=== PATIENT | male | born 1935 | race Caucasian/White ===

== ENCOUNTER 2016-10-11 06:52 | Inpatient (IN) | payer MEDICARE, OTHER ==
--- NOTE | ~2016-10-11 | DS ---
Discharge Summary [address] [address] NAME: LAURA DAY JR : 39 STATUS : DIS IN PAT#: [id number] AGE: 81 ADM/REG DATE : 10/11/16 MR#: [id number] REPORT SERV DATE: 10/16/16 DICTATED BY: TIKA VO DATE: 10/12/16 REPORT STATUS : Draft TRANSCRIBED BY: MODL DATE: 10/12/16 ADMISSION DATE: 10/10/2016 DISCHARGE DATE: 10/12/2016 DISCHARGE DIAGNOSES: 1. Qna-JX-keripibay myocardial infarction. 2. Hyperlipidemia. PROCEDURE: Cardiac catheterization. CONSULTANTS: Dr. Bean. HISTORY OF PRESENT ILLNESS: This is a 81-year-old male patient, who came to the hospital at the [facility] Emergency Room with the complaint of chest pain. Please see the dictated H and P. The patient was admitted to hospital with chest pain, was found to have [id number] NH with troponin elevation. He was seen by Dr. Shine over there, decided to get the cardiac catheterization and transfer to the [facility]. 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 The patient has decided to be medically managed. Did not have any intervention. His troponin is trending down and symptoms have been free since he came to the hospital. His medications have been adjusted with the Plavix, Coreg, and Lipitor, and explained to the patient about the change of medication and followup plan. He voiced understanding. DISPOSITION: The patient is discharged home in stable condition. Needs to follow up with the primary care and Cardiology. DISCHARGE MEDICATIONS: Plavix 75 mg once a day, Coreg 3.125 mg twice a day, and Lipitor 80 mg once at night. TIME SPENT: More than 30 minutes. DICTATED BY: Tika Vo M.D. EKL/GAVIN Tika Vo M.D. / [id number] Discharge Summary [address] [place]. [address] NAME: LAURA DAY JR : 39 STATUS : DIS IN PAT#: [id number] AGE: 81 ADM/REG DATE : 10/11/16 MR#: [id number] REPORT SERV DATE: 10/16/16 DICTATED BY: TIKA VO DATE: 10/12/16 REPORT STATUS : Draft TRANSCRIBED BY: MODL DATE: 10/12/16 CC: Malou Bansla M.D.
[~2016-10-11 06:52] MED LIST: ADVIL PO; ASA5GR PO; ASAB PO; PRAV10
[2016-10-12 06:18] LABS: BASOPHILS 1.1 %; BASOPHILS ABSOLUTE 0.08 10/3/uL (0.0-0.16); EOSINOPHILS 5.8 %; EOSINOPHILS ABSOLUTE 0.41 10/3/uL (0.0-0.53); HEMATOCRIT 40.4 % (40.0-51.0); HEMOGLOBIN 13.6 g/dL (13.6-17.8); IMMATURE GRANULOCYTES 0.1 %; IMMATURE GRANULOCYTES ABSOLUTE 0.01 10/3/uL (0.0-0.11); LYMPHOCYTES 20.7 %; LYMPHOCYTES ABSOLUTE 1.45 10/3/uL (0.67-4.30); MANUAL DIFF NO %; MEAN CORPUS HGB CONC 33.7 g/dL (32.0-36.0); MEAN CORPUSCULAR HEMOGLOB 30.1 pg (26.0-34.0); MEAN CORPUSCULAR VOLUME 89.4 fL (80-100); MEAN PLATELET VOLUME 9.3 fL (9.2-13.0); MONOCYTES ABSOLUTE 0.84 10/3/uL (0.21-1.20); NEUTROPHILS 60.3 %; NEUTROPHILS ABSOLUTE 4.23 10/3/uL (2.02-8.40); PLATELET COUNT 296 10/3/uL (150-400); RBC DISTRIBUTION WIDTH 14.3 % (12.0-16.0); RED CELL COUNT 4.52 10/6/uL (4.7-6.1)
[2016-10-12 06:41] LABS: BUN (BLOOD UREA NITROGEN) 13 MG/DL (6-23); CALCIUM, SERUM 8.7 MG/DL (8.5-10.4); CHLORIDE, SERUM 108 MMOL/L (96-112); CO2 (CARBON DIOXIDE) 24 MMOL/L (24-34); CREATININE 0.86 MG/DL (0.70-1.30); GFR AFRICAN AMERICAN 96 ML/MIN (>=60); GFR NON AFRICAN AMERICAN 82 ML/MIN (>=60); POTASSIUM, SERUM 4.1 MMOL/L (3.5-5.3); SODIUM, SERUM 140 MMOL/L (135-148)
[2016-10-12 06:42] LABS: GLUCOSE, SERUM 75 MG/DL (60-99); TROPONIN I 0.22 NG/ML (<0.05)
[2016-10-12] MEDS ORDERED: LIPITOR80 MG PO (08:52)
[2016-10-12] MEDS ORDERED: PLAVIX PO (08:52)
[2016-10-12] MEDS ORDERED: ASAB PO (08:52)
[2016-10-12] MEDS ORDERED: PRIN5 PO (08:52)
[2016-10-12] MEDS ORDERED: COREG3 PO (08:52)
== END 2016-10-12 09:50 | disposition home or self-care (01) | DRG 282 ==
LOC: CORLMH 06:52 → SSU1 08:30
PROVIDERS: Internal Medicine Cardiovascular Disease
PROC: 4A023N7 Measurement of Cardiac Sampling and Pressure, Left Heart, Percutaneous Approach (ICD-10-PCS; principal; 2016-10-11)
PROC: B2151ZZ Fluoroscopy of Left Heart using Low Osmolar Contrast (ICD-10-PCS; 2016-10-11)
PROC: B2111ZZ Fluoroscopy of Multiple Coronary Arteries using Low Osmolar Contrast (ICD-10-PCS; 2016-10-11)
DX: I21.4 Non-ST elevation (NSTEMI) myocardial infarction (principal); I11.0 Hypertensive heart disease with heart failure; I50.9 Heart failure, unspecified; I36.1 Nonrheumatic tricuspid (valve) insufficiency; I25.10 Atherosclerotic heart disease of native coronary artery without angina pectoris; E78.5 Hyperlipidemia, unspecified; E78.00 Pure hypercholesterolemia, unspecified; F17.210 Nicotine dependence, cigarettes, uncomplicated; Z88.2 Allergy status to sulfonamides; Z88.8 Allergy status to other drugs, medicaments and biological substances; Z90.49 Acquired absence of other specified parts of digestive tract; Z96.643 Presence of artificial hip joint, bilateral; Z98.49 Cataract extraction status, unspecified eye; Z87.891 Personal history of nicotine dependence; Z88.0 Allergy status to penicillin
CPT/HCPCS: 71010; 80048; 80053; 80061; 80076; 82550; 83690; 83735; 84439; 84443; 84484; 85025; 85347; 85610; 85730; 93005; 93306; 93458; 93571; 93572; 99152; 99153; 99285; A9270-GY; C1769; C1887; C1894; J2250; J3010; Q9967

== ENCOUNTER 2016-10-26 08:09 | Inpatient (IN) | payer MEDICARE, OTHER ==
[~2016-10-26 08:09] MED LIST changes: +COREG3 PO; +LIPITOR80 MG PO; +PLAVIX PO; +PRIN5 PO
[2016-10-26 13:44] LABS: CK-MB 2.8 NG/ML; CPK 85 U/L (0-200)
[2016-10-27 04:51] LABS: HEMATOCRIT 39.5 % (40.0-51.0); HEMOGLOBIN 13.4 g/dL (13.6-17.8)
[2016-10-27 05:06] LABS: CALCIUM, SERUM 8.6 MG/DL (8.5-10.4); CHLORIDE, SERUM 107 MMOL/L (96-112); CO2 (CARBON DIOXIDE) 23 MMOL/L (24-34); CREATININE 0.99 MG/DL (0.70-1.30); GFR AFRICAN AMERICAN 84 ML/MIN (>=60); GFR NON AFRICAN AMERICAN 72 ML/MIN (>=60); GLUCOSE, SERUM 81 MG/DL (60-99); POTASSIUM, SERUM 4.2 MMOL/L (3.5-5.3); SODIUM, SERUM 138 MMOL/L (135-148)
[2016-10-27 05:08] LABS: BUN (BLOOD UREA NITROGEN) 13 MG/DL (6-23); CK-MB 3.4 NG/ML; CPK 60 U/L (0-200); TROPONIN I 0.94 NG/ML (<0.05)
== END 2016-10-27 10:14 | disposition home or self-care (01) | DRG 247 ==
LOC: SSU1 08:09
PROVIDERS: Internal Medicine Cardiovascular Disease
PROC: 0270346 Dilation of Coronary Artery, One Artery, Bifurcation, with Drug-eluting Intraluminal Device, Percutaneous Approach (ICD-10-PCS; principal; 2016-10-26)
PROC: 4A023N7 Measurement of Cardiac Sampling and Pressure, Left Heart, Percutaneous Approach (ICD-10-PCS; 2016-10-26)
PROC: B2151ZZ Fluoroscopy of Left Heart using Low Osmolar Contrast (ICD-10-PCS; 2016-10-26)
PROC: B2111ZZ Fluoroscopy of Multiple Coronary Arteries using Low Osmolar Contrast (ICD-10-PCS; 2016-10-26)
DX: I21.4 Non-ST elevation (NSTEMI) myocardial infarction (principal); J44.9 Chronic obstructive pulmonary disease, unspecified; I10 Essential (primary) hypertension; I25.10 Atherosclerotic heart disease of native coronary artery without angina pectoris; E78.2 Mixed hyperlipidemia; E78.00 Pure hypercholesterolemia, unspecified; I25.2 Old myocardial infarction; Z87.891 Personal history of nicotine dependence; Z88.2 Allergy status to sulfonamides; Z88.6 Allergy status to analgesic agent; Z83.6 Family history of other diseases of the respiratory system; Z79.82 Long term (current) use of aspirin; Z79.02 Long term (current) use of antithrombotics/antiplatelets; Z79.899 Other long term (current) drug therapy
CPT/HCPCS: 70450; 71020; 80048; 80061; 82550; 82553; 83735; 84484; 85014; 85018; 85025; 85347; 85610; 85730; 93005; 93454; 96376; 99152; 99153; 99285; A9270-GY; C1725; C1769; C1874; C1887; C1894; C9600; G0378; J2250; J3010; Q9967